=== PATIENT | male | born 1930 | race Caucasian/White ===

== ENCOUNTER → 2019-09-29 | Outpatient (CLI) | payer OTHER | END | disposition home or self-care (01) | LOC: GI 07:00 | PROVIDERS: ATTEND Specialist | DX: K92.2 Gastrointestinal hemorrhage, unspecified (principal); Z11.59 Encounter for screening for other viral diseases ==

== ENCOUNTER → 2019-11-04 | Outpatient (CLI) | payer OTHER | LOC: GI 09:20 | PROVIDERS: ATTEND Specialist | DX: D64.9 Anemia, unspecified (principal); K92.2 Gastrointestinal hemorrhage, unspecified; Z79.899 Other long term (current) drug therapy; Z98.890 Other specified postprocedural states ==